=== PATIENT | female | born 1985 | race Caucasian/White ===

== ENCOUNTER 2016-11-20 09:27 | Emergency (ER) | payer OTHER ==
[~2016-11-20] VITALS: Ht 154.9 cm; Wt 72.6 kg
[~2016-11-20 09:27] MED LIST: ANAPROX DS550 MG PO; AYGESTIN5 MG PO; CLARITIN-D 10 M1 T21 PO; DARVOCET A500 51 TAB PO; DARVOCET N 1001 TAB PO; DAYPRO600 M1 PO; ESTRADIOL1 MG PO; FLAGYL500 MG PO; FLONASE 0.05% 121 EA NAS; HYDROCODONE BIT1 T11 PO; KEFTAB500 MG PO; MACROBID100 M1 PO; NAPROSYN500 MG PO; PHENERGAN25 MG RC; PREDNICOT10 MG PO; PREDNISONE10 MG PO; ROBITUSSIN DM 105 ML PO; SPIRULINA PO; VALACYCLOVIR HYD1 GM PO; VIBRAMYCIN100 MG PO; VICODIN 5/500 505 MG PO; VICODIN 500 MG-1 TAB PO; WOMEN'S DAILY F1 TAB PO; ZOFRAN4 MG PO
[2016-11-20 10:02] LABS: BASO % 0.4 % (0.0-1.0); EOS # 0.2 10*3/uL (0.0-0.4); EOS % 1.7 % (1.0-4.0); HEMATOCRIT 42.2 % (37.0-47.0); HEMOGLOBIN 14.4 g/dl (12.0-16.0); LYMPH # 2.8 10*3/uL (1.3-4.4); LYMPH % 30.6 % (27.0-41.0); MEAN CELL VOLUME 86.7 fl (81.0-99.0); MEAN CORPUSCULAR HGB 29.6 pg (27.0-31.0); MEAN CORPUSCULAR HGB CONC 34.1 g/dl (33.0-37.0); MEAN PLATELET VOLUME 10.8 fl (9.6-12.3); MONO # 0.5 10*3/uL (0.1-1.0); MONO % 5.5 % (3.0-9.0); NEUT # 5.7 10*3/uL (2.3-7.9); NEUT % 61.4 % (47.0-73.0); PLATELET COUNT AUTOMATED 186 10*3/uL (130-400); RED BLOOD COUNT 4.87 10*6/uL (4.10-5.10); RED CELL DISTRI WIDTH 12.6 % (0-14.5); WHITE BLOOD COUNT 9.3 10*3/uL (4.8-10.8)
[2016-11-20 10:16] LABS: ALBUMIN 3.6 gm/dl (3.1-4.5); ALKALINE PHOSPHATASE 59 U/L (45-117); BILIRUBIN, TOTAL 1.1 mg/dl (0.2-1.0); BUN 15 mg/dl (7-24); CARBON DIOXIDE 25 mmol/L (21-32); CHLORIDE 110 mmol/L (98-107); EST GLOM FILT AFRICAN AMERICAN > 60 ml/min; GLUCOSE 88 mg/dL (65-99); POTASSIUM 3.6 mmol/L (3.5-5.1); SGOT/AST 12 IU/L (3-35); SGPT/ALT 14 U/L (12-78); SODIUM 142 mmol/L (136-145); TOTAL PROTEIN 6.9 gm/dL (6.4-8.2)
[2016-11-20 10:26] LABS: BILIRUBIN NEGATIVE (NEGATIVE); BLOOD NEGATIVE (NEGATIVE); CLARITY SL CLOUDY (CLEAR); COLOR YELLOW (YELLOW); GLUCOSE NEGATIVE (NEGATIVE); KETONE TRACE (NEGATIVE); LEUKO ESTERASE NEGATIVE (NEGATIVE); NITRITE NEGATIVE (NEGATIVE); PH 6.5 (5.0-9.0); PROTEIN NEGATIVE (NEGATIVE)
[2016-11-20 10:32] LABS: BACTERIA TRACE; MUCOUS 1+; WBC 0-2 wbc/hpf (0-5)
[2016-11-20 10:33] LABS: URINE REFLEX COMMENT NO (NO)
== END 2016-11-20 13:55 | disposition home or self-care (01) ==
LOC: ED 09:27
PROVIDERS: Registered Nurse
DX: R10.11 Right upper quadrant pain (principal); R11.0 Nausea; F11.10 Opioid abuse, uncomplicated; F17.200 Nicotine dependence, unspecified, uncomplicated; Z88.0 Allergy status to penicillin; Z91.040 Latex allergy status; Z88.8 Allergy status to other drugs, medicaments and biological substances

== ENCOUNTER 2017-02-25 20:48 | Emergency (ER) | payer OTHER ==
[~2017-02-25] VITALS: Ht 154.9 cm; Wt 67.1 kg
[2017-02-25] MEDS ORDERED: PREDNISONE20 M1 PO (21:57)
[2017-02-25] MEDS ORDERED: ZITHROMAX250 MG PO (21:57)
== END 2017-02-25 22:09 | disposition home or self-care (01) ==
LOC: ED 20:48
DX: J20.9 Acute bronchitis, unspecified (principal); F17.200 Nicotine dependence, unspecified, uncomplicated; Z98.890 Other specified postprocedural states; Z98.51 Tubal ligation status; Z88.0 Allergy status to penicillin; Z88.1 Allergy status to other antibiotic agents; Z91.040 Latex allergy status

== ENCOUNTER 2017-08-08 17:53 | Emergency (ER) | payer OTHER ==
[~2017-08-08] VITALS: Wt 90.7 kg
[~2017-08-08 17:53] MED LIST changes: +PREDNISONE20 M1 PO; +ZITHROMAX250 MG PO
[2017-08-08] MEDS ORDERED: FLONASE ALLERG9.9 ML NAS (18:22)
[2017-08-08] MEDS ORDERED: PROAIR HFA8.5 GM INH (18:22)
[2017-08-08] MEDS ORDERED: ZITHROMAX250 MG PO (18:22)
[2017-08-08] MEDS ORDERED: HYCODAN/HYDROMET5 ML PO (18:23)
[2017-08-08] MEDS ORDERED: ALLEGRA-D 24 H1 EACH PO (18:24)
== END 2017-08-08 18:29 | disposition home or self-care (01) ==
LOC: ED 17:53
DX: J01.90 Acute sinusitis, unspecified (principal); R05 Cough; F17.200 Nicotine dependence, unspecified, uncomplicated; F11.10 Opioid abuse, uncomplicated; Z98.51 Tubal ligation status; Z90.89 Acquired absence of other organs; Z88.0 Allergy status to penicillin; Z88.1 Allergy status to other antibiotic agents; Z91.040 Latex allergy status

== ENCOUNTER 2019-08-29 23:16 | Emergency (ER) | payer SELFPAY ==
[~2019-08-29] VITALS: Ht 154.9 cm; Wt 83.9 kg
[~2019-08-29 23:16] MED LIST changes: +ALLEGRA-D 24 H1 EACH PO; +FLONASE ALLERG9.9 ML NAS; +HYCODAN/HYDROMET5 ML PO; +PROAIR HFA8.5 GM INH
[2019-08-29] MEDS ORDERED: CLINDAMYCIN HC300 MG PO (23:36)
== END 2019-08-30 00:16 | disposition home or self-care (01) ==
LOC: ED 23:16
DX: K08.89 Other specified disorders of teeth and supporting structures (principal); Z88.0 Allergy status to penicillin; Z88.1 Allergy status to other antibiotic agents; Z91.040 Latex allergy status; Z88.8 Allergy status to other drugs, medicaments and biological substances; Z79.2 Long term (current) use of antibiotics; Z79.899 Other long term (current) drug therapy; Z98.890 Other specified postprocedural states; Z98.51 Tubal ligation status

== ENCOUNTER 2019-10-01 23:30 | Emergency (ER) | payer MEDICAID ==
[~2019-10-01] VITALS: Ht 154.9 cm; Wt 82.1 kg
[~2019-10-01 23:30] MED LIST changes: +CLINDAMYCIN HC300 MG PO
[2019-10-02 00:29] LABS: BASO # 0.1 10*3/uL (0.0-0.1); BASO % 0.5 % (0.0-1.0); EOS # 0.2 10*3/uL (0.0-0.4); EOS % 1.8 % (1.0-4.0); HEMATOCRIT 39.6 % (37.0-47.0); LYMPH # 3.6 10*3/uL (1.3-4.4); LYMPH % 37.5 % (27.0-41.0); MEAN CELL VOLUME 88.2 fl (81.0-99.0); MEAN CORPUSCULAR HGB 29.6 pg (27.0-31.0); MEAN CORPUSCULAR HGB CONC 33.6 g/dl (33.0-37.0); MEAN PLATELET VOLUME 10.8 fl (9.6-12.3); MONO # 0.6 10*3/uL (0.1-1.0); MONO % 5.7 % (3.0-9.0); NEUT # 5.3 10*3/uL (2.3-7.9); NEUT % 54.2 % (47.0-73.0); PLATELET COUNT AUTOMATED 236 10*3/uL (130-400); RED BLOOD COUNT 4.49 10*6/uL (4.10-5.10); RED CELL DISTRI WIDTH 13.2 % (0-14.5); WHITE BLOOD COUNT 9.7 10*3/uL (4.8-10.8)
[2019-10-02 00:35] LABS: BILIRUBIN NEGATIVE (NEGATIVE); BLOOD TRACE-INTACT (NEGATIVE); CLARITY CLEAR (CLEAR); COLOR YELLOW (YELLOW); GLUCOSE NEGATIVE (NEGATIVE); KETONE 3+ (NEGATIVE)
[2019-10-02 00:36] LABS: LEUKO ESTERASE NEGATIVE (NEGATIVE); NITRITE NEGATIVE (NEGATIVE); UROBILINOGEN 0.2 E.U./dl (0.2-1.0)
[2019-10-02 00:43] LABS: ALBUMIN 3.7 gm/dl (3.1-4.5); ALKALINE PHOSPHATASE 61 U/L (45-117); BUN 18 mg/dl (7-24); CHLORIDE 107 mmol/L (98-107); CREATININE 0.72 mg/dL (0.55-1.02); POTASSIUM 3.5 mmol/L (3.5-5.1); SGOT/AST 13 IU/L (3-35); SGPT/ALT 22 U/L (12-78); SODIUM 138 mmol/L (136-145); TOTAL PROTEIN 7.3 gm/dL (6.4-8.2)
[2019-10-02 00:46] LABS: EPITHELIAL CELLS 21-30
[2019-10-02 00:47] LABS: WBC 0-2 wbc/hpf (0-5)
[2019-10-02] MEDS ORDERED: CYCLOBENZAPRINE10 MG PO (02:19)
== END 2019-10-02 02:22 | disposition home or self-care (01) ==
LOC: ED 23:30
PROVIDERS: Emergency Medicine
DX: S16.1XXA Strain of muscle, fascia and tendon at neck level, initial encounter (principal); G51.0 Bell's palsy; F17.200 Nicotine dependence, unspecified, uncomplicated; Z88.0 Allergy status to penicillin; Z88.8 Allergy status to other drugs, medicaments and biological substances; Z91.040 Latex allergy status; Z79.899 Other long term (current) drug therapy; Z79.2 Long term (current) use of antibiotics; X58.XXXA Exposure to other specified factors, initial encounter; Y93.89 Activity, other specified; Y92.89 Other specified places as the place of occurrence of the external cause; Y99.8 Other external cause status

== ENCOUNTER 2020-02-03 00:20 | Emergency (ER) | payer OTHER ==
[~2020-02-03] VITALS: Ht 154.9 cm; Wt 81.2 kg
[~2020-02-03 00:20] MED LIST changes: +CYCLOBENZAPRINE10 MG PO
[2020-02-03 01:45] LABS: BASO # 0.1 10*3/uL (0.0-0.1); BASO % 0.5 % (0.0-1.0); EOS # 0.2 10*3/uL (0.0-0.4); EOS % 2.2 % (1.0-4.0); HEMATOCRIT 42.1 % (37.0-47.0); LYMPH # 3.3 10*3/uL (1.3-4.4); LYMPH % 35.5 % (27.0-41.0); MEAN CELL VOLUME 83.7 fl (81.0-99.0); MEAN CORPUSCULAR HGB 27.6 pg (27.0-31.0); MONO # 0.6 10*3/uL (0.1-1.0); MONO % 6.3 % (3.0-9.0); NEUT # 5.1 10*3/uL (2.3-7.9); NEUT % 55.2 % (47.0-73.0); PLATELET COUNT AUTOMATED 224 10*3/uL (130-400); RED BLOOD COUNT 5.03 10*6/uL (4.10-5.10); RED CELL DISTRI WIDTH 13.5 % (0-14.5); WHITE BLOOD COUNT 9.3 10*3/uL (4.8-10.8)
[2020-02-03 02:26] LABS: ALBUMIN 3.6 gm/dl (3.1-4.5); ALKALINE PHOSPHATASE 56 U/L (45-117); BUN 14 mg/dl (7-24); CHLORIDE 109 mmol/L (98-107); CREATININE 0.82 mg/dL (0.55-1.02); POTASSIUM 3.9 mmol/L (3.5-5.1); SGOT/AST 13 IU/L (3-35); SGPT/ALT 14 U/L (12-78); SODIUM 135 mmol/L (136-145); TOTAL PROTEIN 7.1 gm/dL (6.4-8.2)
== END 2020-02-03 04:24 | disposition home or self-care (01) ==
LOC: ED 00:20
PROVIDERS: Emergency Medicine
DX: B34.9 Viral infection, unspecified (principal); F17.200 Nicotine dependence, unspecified, uncomplicated; Z88.8 Allergy status to other drugs, medicaments and biological substances; Z88.0 Allergy status to penicillin

== ENCOUNTER 2020-12-31 23:53 | Emergency (ER) | payer OTHER ==
[~2020-12-31] VITALS: Wt 76.2 kg
[2021-01-01] MEDS ORDERED: SEPTDS PO (03:09)
[2021-01-01] MEDS ORDERED: CEPHALEXIN500 M1 PO (03:09)
== END 2021-01-01 03:16 | disposition home or self-care (01) ==
LOC: ED 23:53
DX: L70.0 Acne vulgaris (principal); E78.1 Pure hyperglyceridemia; F17.200 Nicotine dependence, unspecified, uncomplicated; Z88.0 Allergy status to penicillin; Z88.1 Allergy status to other antibiotic agents; Z91.040 Latex allergy status; Z88.8 Allergy status to other drugs, medicaments and biological substances; Z98.51 Tubal ligation status

== ENCOUNTER 2021-09-07 14:17 | Emergency (ER) | payer OTHER ==
[~2021-09-07] VITALS: Wt 79.4 kg
[~2021-09-07 14:17] MED LIST changes: +CEPHALEXIN500 M1 PO; +SEPTDS PO
[2021-09-07] MEDS ORDERED: IBUPROFEN600 MG PO (15:01)
[2021-09-07] MEDS ORDERED: SEPTDS PO (15:01)
== END 2021-09-07 15:11 | disposition home or self-care (01) ==
LOC: ED 14:17
DX: L03.114 Cellulitis of left upper limb (principal)

== ENCOUNTER 2022-08-08 00:01 | Emergency (ER) | payer OTHER ==
[~2022-08-08 00:01] MED LIST changes: +IBUPROFEN600 MG PO
[2022-08-08] MEDS ORDERED: CIPRO500 MG PO (07:18)
== END 2022-08-08 00:52 | disposition left against medical advice (07) ==
LOC: ED 00:01
DX: Z02.83 Encounter for blood-alcohol and blood-drug test (principal); Z88.0 Allergy status to penicillin; Z88.1 Allergy status to other antibiotic agents; Z91.040 Latex allergy status; Z88.8 Allergy status to other drugs, medicaments and biological substances; Z98.51 Tubal ligation status; Z90.89 Acquired absence of other organs; Z98.890 Other specified postprocedural states; F19.10 Other psychoactive substance abuse, uncomplicated; F10.10 Alcohol abuse, uncomplicated; Z87.891 Personal history of nicotine dependence

== ENCOUNTER 2023-01-27 12:00 | Emergency (ER) | payer MEDICAID ==
[~2023-01-27] VITALS: Ht 154.9 cm; Wt 73.5 kg
[~2023-01-27 12:00] MED LIST changes: +CIPRO500 MG PO
== END 2023-01-27 14:57 | disposition home or self-care (01) ==
LOC: ED 12:00
DX: S90.32XA Contusion of left foot, initial encounter (principal); F17.200 Nicotine dependence, unspecified, uncomplicated; Z88.0 Allergy status to penicillin; Z88.1 Allergy status to other antibiotic agents; Z91.040 Latex allergy status; Z88.8 Allergy status to other drugs, medicaments and biological substances; Z79.2 Long term (current) use of antibiotics; Z98.51 Tubal ligation status; Z90.89 Acquired absence of other organs; W22.8XXA Striking against or struck by other objects, initial encounter; Y93.89 Activity, other specified; Y92.89 Other specified places as the place of occurrence of the external cause; Y99.8 Other external cause status

== ENCOUNTER 2023-11-20 14:46 | Emergency (ER) | payer MEDICAID ==
[~2023-11-20] VITALS: Ht 154.9 cm; Wt 79.4 kg
[2023-11-20] MEDS ORDERED: NAPROSYN500 MG PO (16:04)
[2023-11-20] MEDS ORDERED: CLINDAMYCIN HC300 MG PO (16:04)
== END 2023-11-20 16:23 | disposition home or self-care (01) ==
LOC: ED 14:46
DX: K04.7 Periapical abscess without sinus (principal); F17.200 Nicotine dependence, unspecified, uncomplicated; Z88.0 Allergy status to penicillin; Z88.1 Allergy status to other antibiotic agents; Z91.040 Latex allergy status; Z88.8 Allergy status to other drugs, medicaments and biological substances; Z98.51 Tubal ligation status; Z90.89 Acquired absence of other organs

== ENCOUNTER 2023-12-29 17:27 | Emergency (ER) | payer MEDICAID ==
[~2023-12-29] VITALS: Ht 154.9 cm; Wt 84.4 kg
[2023-12-29] MEDS ORDERED: Dexamethasone Sodium Phospha 20 MG/5 ML VIAL IM ONE (17:55)
[2023-12-29] MEDS ORDERED: PREDNISONE20 M1 PO (18:11)
== END 2023-12-29 18:18 | disposition home or self-care (01) ==
LOC: ED 17:27
DX: S76.012A Strain of muscle, fascia and tendon of left hip, initial encounter (principal); F10.10 Alcohol abuse, uncomplicated; F17.200 Nicotine dependence, unspecified, uncomplicated; F19.10 Other psychoactive substance abuse, uncomplicated; Z88.0 Allergy status to penicillin; Z88.1 Allergy status to other antibiotic agents; Z91.040 Latex allergy status; Z88.8 Allergy status to other drugs, medicaments and biological substances; Z98.51 Tubal ligation status; Z90.89 Acquired absence of other organs; Z98.890 Other specified postprocedural states; X50.0XXA Overexertion from strenuous movement or load, initial encounter; Y93.89 Activity, other specified; Y92.89 Other specified places as the place of occurrence of the external cause; Y99.0 Civilian activity done for income or pay